=== PATIENT | male | born 1940 ===

== ENCOUNTER 2017-03-31 12:47 | Emergency (ER) | payer MEDICARE, BC ==
--- NOTE | 2017-03-31 13:33 | ED ---
General Adult HPI - General Chief complaint: Fall Stated complaint: Fall Time Seen by Provider: 03/31/17 13:10 Source: patient, RN notes reviewed Mode of arrival: wheelchair Limitations: no limitations - History of Present Illness Initial comments: 76-year-old male presents to the emergency department with a chief complaint of a fall. He states that he was getting out of his truck he went to sit stepped down and he slipped on ice. Patient states he hit his head on his car seat. He states that he then fell backwards onto his back onto the ice. Patient states he has a little bit of neck pain. He also complains of low back and bilateral hip pain as well as he is having burning-like sensation to both index fingers on the hands. He states that he hasn't had any numbness or tingling to them he is able to move them he feels pain to them with touch. He denies any other injury from the incident. He denies any loss of consciousness related to the incident. He states he takes aspirin but he denies any use of other blood thinners. There were concerned due to the fall. Patient denies any recent fever, chills, shortness of breath, chest pain, back pain, abdominal pain, nausea vomiting, numbness or tingling, dysuria or hematuria, constipation or diarrhea, headaches or visual changes, or any other current symptoms. - Related Data Home Medications Medication Instructions Recorded Confirmed ALPRAZolam [Xanax] 0.25 mg PO BID PRN 03/26/14 03/29/14 Aspirin 325 mg PO DAILY 03/26/14 03/26/14 Atorvastatin [Lipitor] 20 mg PO HS 03/26/14 03/29/14 Esomeprazole Magnesium [NexIUM] 40 mg PO DAILY 03/26/14 03/29/14 Fluticasone Propionate [Flonase] 1 spray EA NOSTRIL DAILY 03/26/14 03/29/14 HYDROcodone/APAP 7.5-325MG [[place] 1 each PO Q6HR PRN 03/26/14 03/29/14 7.5-325] Losartan Potassium [Cozaar] 100 mg PO DAILY 03/26/14 03/29/14 Nitroglycerin Sl Tabs [Nitrostat] 0.4 mg SUBLINGUAL DIRECTED PRN 03/26/1411/03 Temazepam [Restoril] 30 mg PO HS 03/26/14 03/29/14 Allergies Allergy/AdvReac Type Severity Reaction Status Date / Time Sulfa (Sulfonamide Allergy AFFECTED Verified 03/31/17 12:58 Antibiotics) KIDNEYS Review of Systems ROS Statement: Those systems with pertinent positive or pertinent negative responses have been documented in the HPI. ROS Other: All systems not noted in ROS Statement are negative. Past Medical History Past Medical History: Coronary Artery Disease (CAD), GERD/Reflux, Hypertension, Myocardial Infarction ([place]), Renal Disease Additional Past Medical History / Comment(s): KIDNEY PROB W/ PREV BOWEL PREP IN PAST. Last Myocardial Infarction Date:: 11/2009 History of Any Multi-Drug Resistant Organisms: MRSA Date of last positivie culture/infection: 10/2009 MDRO Source:: BUTTOCK Past Surgical History: Cholecystectomy, Heart Catheterization, Heart Catheterization With Stent, Orthopedic Surgery Additional Past Surgical History / Comment(s): RT 5TH DIGIT REPAIR. Past Anesthesia/Blood Transfusion Reactions: No Reported Reaction Date of Last Stent Placement:: 07/2005 Past Psychological History: No Psychological Hx Reported Smoking Status: Former smoker Past Alcohol Use History: None Reported Past Drug Use History: None Reported General Exam - General Exam Comments Initial Comments: General: The patient is awake and alert, in no distress, and does not appear acutely ill. Eye: Pupils are equal, round and reactive to light, extra-ocular movements are intact; there is normal conjunctiva bilaterally. No signs of icterus. Ears, nose, mouth and throat: There are moist mucous membranes. Neck: The neck is supple, there is no tenderness. Cardiovascular: There is a regular rate and rhythm. No murmur, rub or gallop is appreciated. Respiratory: Lungs are clear to auscultation, respirations are non-labored, breath sounds are equal. No wheezes, stridor, rales, or rhonchi. Gastrointestinal: Soft, non-distended, non-tender abdomen without masses or organomegaly noted. There is no rebound or guarding present. No CVA tenderness. Bowel sounds are unremarkable. Back: There is no tenderness to palpation in the midline. There is no obvious deformity. No rashes noted. Musculoskeletal: Normal ROM, no tenderness, There is no pedal edema. There is no calf tenderness or swelling. Sensation intact. Pulses equal bilaterally 2+. Neurological: CN II-XII intact, There are no obvious motor or sensory deficits. Coordination appears grossly intact. Speech is normal. Skin: Skin is warm and dry and no rashes or lesions are noted. Psychiatric: Cooperative, appropriate mood & affect, normal judgment. Limitations: no limitations Course Vital Signs 03/31/17 12:56 Temperature 98.1 F Pulse Rate 65 Respiratory 20 Rate Blood Pressure 192/91 O2 Sat by Pulse 98 Oximetry Medical Decision Making - Medical Decision Making 76-year-old male presents for fall. At this time patient's images are reviewed. There does appear to be a concern for fifth metacarpal fracture he has no tenderness over their only over the first digit. He refuses this point he said that is not broken. He is now. Pain there. He'll follow-up with his family care doctor if it does start to hurt. This time we will respect his wishes. We discussed return parameters and questions the patient is comfortable with this. At this time he will be discharged home. - Radiology Data Radiology results: report reviewed, image reviewed Disposition Clinical Impression: Fall, Minor head injury without loss of consciousness, Pain in finger of both hands, Lumbar strain Disposition: HOME SELF-CARE Condition: Stable Instructions: Head Injury (ED), Low Back Strain (ED) Additional Instructions: Please use medication as discussed. Please follow up with family doctor if symptoms have not improved over the next two days. Please return to the emergency room if your symptoms increase or worsen or for any other concerns. Referrals: Amish Crawford MD [Primary Care Provider] - 1-2 days Time of Disposition: 14:20
--- NOTE | 2017-03-31 14:05 | CT ---
EXAMINATION TYPE: CT brain cspine wo con DATE OF EXAM: 03/31/2017 COMPARISON: Prior CT brain and cervical spine 03/23/2010 HISTORY: Fall today. Neck and back pain. CT DLP: 1591.8 mGycm Automated exposure control for dose reduction was used. TECHNIQUE: CT scan of the head and cervical spine are performed without contrast. FINDINGS: There is no acute intracranial hemorrhage, mass effect, or midline shift identified. The ventricles and sulci are within normal limits in size. Cerebral vascular calcifications again noted. The globes are intact and the visualized sinuses are clear. Cervical spine is visualized in its entirety from C1 through upper thoracic levels and demonstrates s atisfactory alignment without evidence of acute fracture or dislocation. Prevertebral soft tissue ap pears within normal limits. The C1-C2 articulation is stable. Atheromatous changes are present withi n the carotid arteries. There is multilevel foraminal encroachment, facet arthropathy as on prior exa m. There is multilevel spondylosis, loss of disc height is on prior. Arthropathy changes present. IMPRESSION: Stable exam. 1. There is no acute fracture or dislocation evident in the cervical spine. 2. No acute intracranial hemorrhage, mass effect, or midline shift is seen.
--- NOTE | 2017-03-31 14:06 | XR ---
EXAMINATION TYPE: XR hand complete RT DATE OF EXAM: 03/31/2017 CLINICAL HISTORY: pain TECHNIQUE: Frontal, lateral and oblique images of the right hand are obtained. COMPARISON: None. FINDINGS: Nondisplaced obliquely oriented fracture of the right fifth metacarpal. The joint spaces ap pear within normal limits. The overlying soft tissue appears unremarkable. IMPRESSION: Nondisplaced obliquely oriented fracture of the right fifth metacarpal. ICD 10 closed FRACTURE, INITIAL EVALUATION
--- NOTE | 2017-03-31 14:07 | XR ---
EXAMINATION TYPE: XR pelvis AP view DATE OF EXAM: 03/31/2017 CLINICAL HISTORY: pain TECHNIQUE: Single view the pelvis is submitted. FINDINGS: No evidence for fracture, dislocation or bony lesion. Joint spaces are well-preserved. S I joints appear symmetric. IMPRESSION: 1. No acute fracture or dislocation seen. ICD 10 NO FRACTURE, INITIAL EVALUATION
--- NOTE | 2017-03-31 14:07 | CT ---
EXAMINATION TYPE: CT thor lumbar spine wo con DATE OF EXAM: 03/31/2017 COMPARISON: NONE HISTORY: Fall today. Back pain. CT DLP: 1071.6 mGycm Automated exposure control for dose reduction was used. FINDINGS: CT scan of the thoracolumbar spine show slight scoliotic curvature on coronal images in the thoracic spine and straightening of spine on sagittal images. There is no acute fracture or dislocation in the thoracic spine. There is some mild to moderate multilevel disc space narrowing in the mid thoracic spine. There is mi ld to moderate multilevel anterior and lateral spurring in the mid to lower thoracic spine. There is more mild anterior and lateral spurring in the lumbar spine. There is posterior spur disc complex eff acing anterior thecal sac at T6-T7 level sagittal image 38. Some posterior spurring from T7-T8 disc s pace level and posterior T9 vertebra is noted on sagittal images. No large posterior disc herniations are seen in the lumbar spine on sagittal or axial images. There is moderate to severe calcified plaque of the aorta most prominent in the distal abdominal aort a extending into iliac branch vessels. There is partial visualization of sigmoid colonic diverticulos is. There is partial visualization of coronary artery calcification. IMPRESSION: NO ACUTE FRACTURE OR DISLOCATION IN THE THORACOLUMBAR SPINE IS PRESENT.
[2017-03-31 14:30] VITALS: BP 167/87; PULSE 62; RESP 17; TEMP 97.8
== END 2017-03-31 14:29 | disposition home or self-care (01) ==
LOC: EC 12:47
DX: S09.90XA Unspecified injury of head, initial encounter (principal); S39.012A Strain of muscle, fascia and tendon of lower back, initial encounter; M79.645 Pain in left finger(s); M79.644 Pain in right finger(s); M54.2 Cervicalgia; M25.551 Pain in right hip; M25.552 Pain in left hip; K21.9 Gastro-esophageal reflux disease without esophagitis; I10 Essential (primary) hypertension; I25.2 Old myocardial infarction; Z86.14 Personal history of Methicillin resistant Staphylococcus aureus infection; Z95.5 Presence of coronary angioplasty implant and graft; Z79.51 Long term (current) use of inhaled steroids; Z79.82 Long term (current) use of aspirin; Z79.899 Other long term (current) drug therapy; Z88.2 Allergy status to sulfonamides; Z87.891 Personal history of nicotine dependence; W00.2XXA Other fall from one level to another due to ice and snow, initial encounter
CPT/HCPCS: 70450; 72125; 72128; 72131; 72170; 99284

== ENCOUNTER → 2017-10-26 | Outpatient (CLI) | payer MEDICARE, BC ==
--- NOTE | 2017-10-26 22:57 | US ---
EXAMINATION TYPE: US kidneys/renal and bladder DATE OF EXAM: 10/26/2017 COMPARISON: NONE CLINICAL HISTORY: 77-year-old male R94.4 Abnormal results of kidney function studies. Abn Labs TECHNIQUE: Multiple sonographic images of the kidneys and bladder are obtained. FINDINGS: Right Kidney: 9.7 x 5.0 x 4.6 cm Left Kidney: 10.0 x 5.7 x 4.2 cm No hydronephrosis on either side. Partially distended bladder shows no gross abnormality. Neither ureteral jet is visualized IMPRESSION: No hydronephrosis.
== END | disposition home or self-care (01) ==
LOC: RADUSWWP 16:24
PROVIDERS: ATTEND Internal Medicine Geriatric Medicine
DX: R94.4 Abnormal results of kidney function studies (principal)
CPT/HCPCS: 76770

== ENCOUNTER 2021-10-17 20:10 | Emergency (ER) | payer MEDICARE, BC ==
--- NOTE | 2021-10-17 20:35 | ED ---
General Adult HPI - General Chief complaint: Fever Stated complaint: Fever Time Seen by Provider: 10/17/21 20:35 Source: patient, family Mode of arrival: ambulatory Limitations: no limitations - History of Present Illness Initial comments: Patient presents to the ED with his for evaluation. Patient states that he has felt "just blah" today. Patient states that he had a fever of 101 Fahrenheit earlier today, and he is complaining of malaise. Patient is unvaccinated for Covid, but he states that he has received a flu vaccine this season. Patient denies having any pain, headache, neck pain or stiffness, sore throat, otalgia, nasal congestion, cough, chest pain, dyspnea, dizziness, abdominal pain, nausea/vomiting/diarrhea, bloody or melanotic stool, dysuria or urinary symptoms, or any other symptoms or complaints. Patient denies taking an y antipyretic medication today. - Related Data Home Medications Medication Instructions Recorded Confirmed ALPRAZolam [Xanax] 0.25 mg PO BID PRN 03/26/14 03/29/14 Aspirin 325 mg PO DAILY 03/26/14 03/26/14 Atorvastatin [Lipitor] 20 mg PO HS 03/26/14 03/29/14 Esomeprazole Magnesium [NexIUM] 40 mg PO DAILY 03/26/14 03/29/14 Fluticasone Propionate [Flonase] 1 spray EA NOSTRIL DAILY 03/26/14 03/29/14 HYDROcodone/APAP 7.5-325MG [[place] 1 each PO Q6HR PRN 03/26/14 03/29/14 7.5-325] Losartan Potassium [Cozaar] 100 mg PO DAILY 03/26/14 03/29/14 Nitroglycerin Sl Tabs [Nitrostat] 0.4 mg SUBLINGUAL DIRECTED PRN 03/26/14 03/29/14 Temazepam [Restoril] 30 mg PO HS 03/26/14 03/29/14 Allergies Allergy/AdvReac Type Severity Reaction Status Date / Time Sulfa (Sulfonamide Allergy AFFECTED Verified 10/17/21 20:16 Antibiotics) KIDNEYS Review of Systems ROS Statement: Those systems with pertinent positive or pertinent negative responses have been documented in the HPI. ROS Other: All systems not noted in ROS Statement are negative. Past Medical History Past Medical History: Coronary Artery Disease (CAD), GERD/Reflux, Hypertension, Myocardial Infarction ([place]), Renal Disease Additional Past Medical History / Comment(s): KIDNEY PROB W/ PREV BOWEL PREP IN PAST. Last Myocardial Infarction Date:: 11/2009 History of Any Multi-Drug Resistant Organisms: MRSA Date of last positivie culture/infection: 10/2009 MDRO Source:: BUTTOCK Past Surgical History: Cholecystectomy, Heart Catheterization, Heart Catheterization With Stent, Orthopedic Surgery Additional Past Surgical History / Comment(s): RT 5TH DIGIT REPAIR. Past Anesthesia/Blood Transfusion Reactions: No Reported Reaction Date of Last Stent Placement:: 07/2005 Past Psychological History: No Psychological Hx Reported Smoking Status: Former smoker Past Alcohol Use History: None Reported Past Drug Use History: None Reported General Exam Limitations: no limitations General appearance: alert, in no apparent distress Head exam: Present: atraumatic, normocephalic Eye exam: Present: normal appearance, EOMI ENT exam: Present: normal oropharynx, mucous membranes moist Neck exam: Present: other (Trachea is in midline). Absent: tenderness, meningismus Respiratory exam: Present: normal lung sounds bilaterally. Absent: respiratory distress, wheezes, rales, rhonchi, stridor Cardiovascular Exam: Present: regular rate, normal rhythm, normal heart sounds, other (Normal radial pulses bilaterally) GI/Abdominal exam: Present: soft. Absent: distended, tenderness, guarding Extremities exam: Absent: tenderness, pedal edema Back exam: Absent: CVA tenderness (R), CVA tenderness (L) Neurological exam: Present: alert, oriented X3. Absent: motor sensory deficit Psychiatric exam: Present: normal affect, normal mood Skin exam: Present: warm, dry, intact, normal color Course Vital Signs 10/17/21 10/17/21 20:11 22:38 Temperature 100 F H 98.2 F Pulse Rate 62 64 Respiratory 22 16 Rate Blood Pressure 184/103 159/90 O2 Sat by Pulse 95 95 Oximetry - Reevaluation(s) Reevaluation #1: 10/17/21 22:18 Patient's Covid test is positive. I have discussed the risks and benefits of monoclonal antibody therapy with the patient, and he wishes to proceed with IV monoclonal antibodies at this time. Medical Decision Making - Medical Decision Making Patient is breathing comfortably in the ED with a normal room air oxygen saturation. Patient's Covid test is positive. Patient's chest x-ray is unremarkable. Patient has received IV monoclonal antibodies for treatment of Covid in the ED. Patient and were counseled about Covid and Covid isolation precautions, and they were clearly explained return and follow-up instructions. Patient feels comfortable with this plan. - Lab Data Result diagrams: 10/17/21 21:06 10/17/21 21:06 Lab Results 10/17/21 10/17/21 10/17/21 Range/Units 21:06 21:06 21:06 WBC 6.5 (3.8-10.6) k/uL RBC 4.98 (4.30-5.90) m/uL Hgb 14.7 (13.0-17.5) gm/dL Hct 45.8 (39.0-53.0) % MCV 92.0 (80.0-100.0) fL MCH 29.6 (25.0-35.0) pg MCHC 32.2 (31.0-37.0) g/dL RDW 12.7 (11.5-15.5) % Plt Count 208 (150-450) k/uL MPV 7.8 Neutrophils % 79 % Lymphocytes % 4 % Monocytes % 15 % Eosinophils % 1 % Basophils % 1 % Neutrophils # 5.1 (1.3-7.7) k/uL Lymphocytes # 0.3 L (1.0-4.8) k/uL Monocytes # 0.9 (0-1.0) k/uL Eosinophils # 0.0 (0-0.7) k/uL Basophils # 0.1 (0-0.2) k/uL Sodium (137-145) mmol/L Potassium (3.5-5.1) mmol/L Chloride (98-107) mmol/L Carbon Dioxide (22-30) mmol/L Anion Gap mmol/L BUN (9-20) mg/dL Creatinine (0.66-1.25) mg/dL Est GFR (CKD-EPI)AfAm (>60 ml/min/1.73 sqM) Est GFR (CKD-EPI)NonAf (>60 ml/min/1.73 sqM) Glucose (74-99) mg/dL Calcium (8.4-10.2) mg/dL Total Bilirubin (0.2-1.3) mg/dL AST (17-59) U/L ALT (4-49) U/L Alkaline Phosphatase (38-126) U/L Total Protein (6.3-8.2) g/dL Albumin (3.5-5.0) g/dL Urine Color Yellow Urine Appearance Cloudy (Clear) Urine pH 7.5 (5.0-8.0) Ur Specific [place] 1.020 (1.001-1.035) Urine Protein Trace H (Negative) Urine Glucose (UA) Negative (Negative) Urine Ketones Trace H (Negative) Urine Blood Moderate H (Negative) Urine Nitrite Negative (Negative) Urine Bilirubin Negative (Negative) Urine Urobilinogen <2.0 (<2.0) mg/dL Ur Leukocyte Esterase Negative (Negative) Urine RBC 35 H (0-5) /hpf Urine WBC <1 (0-5) /hpf Ur Squamous Epith Cells <1 (0-4) /hpf Urine Mucus Rare H (None) /hpf Influenza Type A (PCR) Not Detected (Not Detectd) Influenza Type B (PCR) Not Detected (Not Detectd) RSV (PCR) Not Detected (Not Detectd) SARS-CoV-2 (PCR) Detected A (Not Detectd) 10/17/21 Range/Units 21:06 WBC (3.8-10.6) k/uL RBC (4.30-5.90) m/uL Hgb (13.0-17.5) gm/dL Hct (39.0-53.0) % MCV (80.0-100.0) fL MCH (25.0-35.0) pg MCHC (31.0-37.0) g/dL RDW (11.5-15.5) % Plt Count (150-450) k/uL MPV Neutrophils % % Lymphocytes % % Monocytes % % Eosinophils % % Basophils % % Neutrophils # (1.3-7.7) k/uL Lymphocytes # (1.0-4.8) k/uL Monocytes # (0-1.0) k/uL Eosinophils # (0-0.7) k/uL Basophils # (0-0.2) k/uL Sodium 140 (137-145) mmol/L Potassium 4.1 (3.5-5.1) mmol/L Chloride 102 (98-107) mmol/L Carbon Dioxide 28 (22-30) mmol/L Anion Gap 10 mmol/L BUN 16 (9-20) mg/dL Creatinine 1.13 (0.66-1.25) mg/dL Est GFR (CKD-EPI)AfAm 70 (>60 ml/min/1.73 sqM) Est GFR (CKD-EPI)NonAf 61 (>60 ml/min/1.73 sqM) Glucose 114 H (74-99) mg/dL Calcium 9.9 (8.4-10.2) mg/dL Total Bilirubin 0.4 (0.2-1.3) mg/dL AST 34 (17-59) U/L ALT 20 (4-49) U/L Alkaline Phosphatase 99 (38-126) U/L Total Protein 8.1 (6.3-8.2) g/dL Albumin 4.6 (3.5-5.0) g/dL Urine Color Urine Appearance (Clear) Urine pH (5.0-8.0) Ur Specific [place] (1.001-1.035) Urine Protein (Negative) Urine Glucose (UA) (Negative) Urine Ketones (Negative) Urine Blood (Negative) Urine Nitrite (Negative) Urine Bilirubin (Negative) Urine Urobilinogen (<2.0) mg/dL Ur Leukocyte Esterase (Negative) Urine RBC (0-5) /hpf Urine WBC (0-5) /hpf Ur Squamous Epith Cells (0-4) /hpf Urine Mucus (None) /hpf Influenza Type A (PCR) (Not Detectd) Influenza Type B (PCR) (Not Detectd) RSV (PCR) (Not Detectd) SARS-CoV-2 (PCR) (Not Detectd) - Radiology Data Chest x-ray: No acute cardiopulmonary disease/process. Disposition Clinical Impression: COVID-19 Disposition: HOME SELF-CARE Condition: Stable Instructions (If sedation given, give patient instructions): Coronavirus Disease 2019 (COVID-19), Fever in Adults (ED) Additional Instructions: Return to the ER immediately should you develop shortness of breath, any significant pain, feeling dizzy or faint, or new or worsening symptoms. Follow up closely with your primary care provider. Is patient prescribed a controlled substance at d/c from ED?: No Referrals: Amish Crawford MD [Primary Care Provider] - 1-2 days Time of Disposition: 23:05
[2021-10-17] MEDS ORDERED: ACETAMINOPHEN TAB 500 MG TAB PO STA (20:48)
[2021-10-17 21:25] LABS: Appearance,Urine Cloudy (Clear); Bilirubin,Urine Negative (Negative); Blood,Urine Moderate (Negative); Color,Urine Yellow; Glucose,Urine (UA) Negative (Negative); Ketones,Urine Trace (Negative); Leukocyte Esterase,Urine Negative (Negative); Mucus,Urine Rare /hpf; Nitrite,Urine Negative (Negative); PH, Urine 7.5 (5.0-8.0); Protein,Urine Trace (Negative); RBC,Urine 35 /hpf (0-5); Squamous Epithelial Cell,Urine <1 /hpf (0-4); Urobilinogen,Urine <2.0 mg/dL (<2.0); WBC,Urine <1 /hpf (0-5)
--- NOTE | 2021-10-17 21:25 | XR ---
EXAMINATION TYPE: XR chest 2V DATE OF EXAM: 10/17/2021 9:19 PM COMPARISON: Chest radiographs from 12/18/2018 TECHNIQUE: XR chest 2V Frontal and lateral views of the chest. CLINICAL INDICATION:Male, 81 years old with history of fever; FINDINGS: Lungs/Pleura: There is no evidence of pleural effusion, focal consolidation, or pneumothorax. Pulmonary vascularity: Unremarkable. Heart/mediastinum: Cardiomediastinal silhouette is unremarkable. Musculoskeletal: No acute osseous pathology. IMPRESSION: No acute cardiopulmonary disease/process.
[2021-10-17 21:31] LABS: Albumin 4.6 g/dL (3.5-5.0); Calcium 9.9 mg/dL (8.4-10.2); Potassium 4.1 mmol/L (3.5-5.1); Total Bilirubin 0.4 mg/dL (0.2-1.3); Total Protein 8.1 g/dL (6.3-8.2)
[2021-10-17 21:42] LABS: Basophils # (A) 0.1 k/uL (0-0.2); Basophils % (A) 1 %; Eosinophils % (A) 1 %; HCT 45.8 % (39.0-53.0); HGB 14.7 gm/dL (13.0-17.5); Lymphocytes # (A) 0.3 k/uL (1.0-4.8); Lymphocytes % (A) 4 %; MCH 29.6 pg (25.0-35.0); MCHC 32.2 g/dL (31.0-37.0); Mean Platelet Volume 7.8; Monocytes # (A) 0.9 k/uL (0-1.0); Monocytes % (A) 15 %; Neutrophils # (A) 5.1 k/uL (1.3-7.7); Neutrophils % (A) 79 %; Platelet Count 208 k/uL (150-450); RBC 4.98 m/uL (4.30-5.90); RDW 12.7 % (11.5-15.5); WBC 6.5 k/uL (3.8-10.6)
[2021-10-17] MEDS ORDERED: BEBTELOVIMAB (EUA) 175 MG/2 ML VIAL IV ONE (22:30)
[2021-10-17 22:40] VITALS: RESP 16
[2021-10-17 23:42] VITALS: BP 159/96; PULSE 60; TEMP 98.9
== END 2021-10-17 23:48 | disposition home or self-care (01) ==
LOC: EC 20:10
DX: U07.1 COVID-19 (principal); I10 Essential (primary) hypertension; I25.2 Old myocardial infarction; K21.9 Gastro-esophageal reflux disease without esophagitis; I25.10 Atherosclerotic heart disease of native coronary artery without angina pectoris; Z88.2 Allergy status to sulfonamides; Z79.899 Other long term (current) drug therapy; Z79.82 Long term (current) use of aspirin; Z87.891 Personal history of nicotine dependence
CPT/HCPCS: 36415; 80053; 85025; 81001; 87636; 71046; 99283; Q0222

== ENCOUNTER 2022-12-22 13:34 | Observation (INO) | payer MEDICARE, BC ==
[2022-12-22] MEDS ORDERED: DIPH,PERTUS(ACELL)TETVAC-LF 0.5 ML VIAL IM ONE (13:56)
[2022-12-22] MEDS ORDERED: LIDOCAINE/EPINEPHR/TETRACAINE 5 ML BOTTLE TOPICAL ONE (13:56)
[2022-12-22] MEDS ORDERED: ceFAZolin 1,000 MG VIAL (IM USE) IM STA (13:58)
[2022-12-22] MEDS ORDERED: MORPHINE SULFATE 4 MG/ML SYRINGE IM STA (14:07)
--- NOTE | 2022-12-22 14:14 | ED ---
Upper Extremity HPI - General Chief Complaint: Extremity Injury, Upper Stated Complaint: Smashed L Thumb, No Thinners Time Seen by Provider: 12/22/22 13:43 Source: patient, RN notes reviewed Mode of arrival: ambulatory Limitations: no limitations - History of Present Illness Initial Comments: This is an 82-year-old male who presents to the emergency department for a left thumb injury. States that he got this caught in a wood splitter shortly before arrival. He is unable to control the bleeding. He is not taking any blood thinners. Unsure when his last tetanus vaccine was. States that this is becoming increasingly painful. Denies any fevers, chills, sore throat, cough, dyspnea, chest pain, palpitations, abdominal pain, nausea, vomiting, diarrhea, back pain, or headaches. MD Complaint: Injury to:: left, finger - Related Data Home Medications Medication Instructions Recorded Confirmed ALPRAZolam [Xanax] 0.25 mg PO BID PRN 03/26/14 12/22/22 Temazepam [Restoril] 30 mg PO HS 03/26/14 12/22/22 HYDROcodone/APAP 10-325MG [[place] 1 tab PO Q6HR PRN 12/22/22 12/22/22 10-325] traMADol HCL 50 mg PO Q6H PRN 12/22/22 12/22/22 Allergies Allergy/AdvReac Type Severity Reaction Status Date / Time Sulfa (Sulfonamide Allergy AFFECTED Verified 12/22/22 13:41 Antibiotics) KIDNEYS Review of Systems ROS Statement: Those systems with pertinent positive or pertinent negative responses have been documented in the HPI. ROS Other: All systems not noted in ROS Statement are negative. Past Medical History Past Medical History: Coronary Artery Disease (CAD), GERD/Reflux, Hypertension, Myocardial Infarction ([place]), Renal Disease Additional Past Medical History / Comment(s): KIDNEY PROB W/ PREV BOWEL PREP IN PAST. Last Myocardial Infarction Date:: 11/2009 History of Any Multi-Drug Resistant Organisms: MRSA Date of last positivie culture/infection: 10/2009 MDRO Source:: BUTTOCK Past Surgical History: Cholecystectomy, Heart Catheterization, Heart Catheterization With Stent, Orthopedic Surgery Additional Past Surgical History / Comment(s): RT 5TH DIGIT REPAIR. Past Anesthesia/Blood Transfusion Reactions: No Reported Reaction Date of Last Stent Placement:: 07/2005 Past Psychological History: No Psychological Hx Reported Smoking Status: Former smoker Past Alcohol Use History: None Reported Past Drug Use History: None Reported General Exam Limitations: no limitations General appearance: alert, in no apparent distress Head exam: Present: atraumatic, normocephalic, normal inspection Respiratory exam: Present: normal lung sounds bilaterally. Absent: respiratory distress, wheezes, rales, rhonchi, stridor Cardiovascular Exam: Present: regular rate, normal rhythm, normal heart sounds. Absent: systolic murmur, diastolic murmur, rubs, gallop, clicks Extremities exam: Present: other (Severe tissue loss and damage to the distal aspect of the left thumb with visible distal phalanx bone. Active bleeding.) Neurological exam: Present: alert, oriented X3, CN II-XII intact Psychiatric exam: Present: normal affect, normal mood Course Vital Signs 12/22/22 13:36 Temperature 97.9 F Pulse Rate 89 Respiratory 18 Rate Blood Pressure 179/98 O2 Sat by Pulse 98 Oximetry Medical Decision Making - Medical Decision Making This is an 82-year-old male who presents to the emergency department for a left thumb injury. Was pt. sent in by a medical professional or institution? @ -No Did you speak to anyone other than the patient for history? @ -No Did you review nursing and triage notes? @ -Yes, and I agree, it is accurate with regards to the patient's symptoms. Were old charts reviewed? @ -No Differential Diagnosis? @ -Differential Thumb Injury: Fracture, dislocation, contusion, laceration, abrasion, degloving injury, this is not meant to be an all-inclusive list. EKG interpreted by me (3pts min.)? @ -Not obtained X-rays interpreted by me (1pt min.)? @ -X-ray of the left thumb obtained. My interpretation of that of a severe tissue destruction to the distal aspect of the left thumb. CT interpreted by me (1pt min.)? @ -Not obtained U/S interpreted by me (1pt. min.)? @ -Not obtained What testing was considered but not performed? (CT, X-rays, U/S, labs)? Why? @ -None What meds were considered but not given? Why? @ -None Did you discuss the management of the patient with other professionals? @ -Yes, Rajiv Galindo with [facility], who accepts the patient for admission. Did you reconcile home meds? @ -No Was smoking cessation discussed for >3mins.? @ -No Was critical care preformed (if so, how long)? @ -No Were there social determinants of health that impacted care today? How? (Homelessness, low income, unemployed, alcoholism, drug addiction, transportation, low edu. Level, literacy, decrease access to med. care, assisted, rehab)? @ -No Was there de-escalation of care discussed even if they declined? (Discuss DNR or withdrawal of care, Hospice)? @ -No What co-morbidities impacted this encounter? (DM, HTN, Smoking, COPD, CAD, Cancer, CVA, Hep., AIDS, mental health diagnosis, sleep apnea, morbid obesity)? @ HLD, HTN, CAD Was patient admitted / discharged? @ -Admitted. X-ray of the left thumb obtained revealing severe soft tissue loss to the distal aspect of the left thumb with the underlying transverse fracture through the shaft of the first distal phalanx. Tetanus vaccine was updated on arrival and he was immediately given a dose of IM Kefzol due to the obvious open fracture. There was substantial bleeding on arrival. We were able to control this is some extent with LET. The wound itself was thoroughly irrigated. However, there was a large amount of exposed bone and the distal aspect was essentially mangled and there were no skin flaps that could be used for closure in the emergency department. Given the exposed bone and inability to provide closure, there was concern for the development of infection. This is also the patient's dominant hand. Case discussed with orthopedics, who agrees to admit the patient. They advised IV antibiotics, updating his tetanus, and keeping him NPO after midnight for surgical intervention. Patient was started on IV Kefzol and medicine was consulted for medical management. NPO after midnight orders were placed. Preoperative lab work was obtained as well revealing no actionable findings. Undiagnosed new problem with uncertain prognosis? @ -None Drug Therapy requiring intensive monitoring for toxicity (Heparin, Nitro, Insulin, Cardizem)? @ -None Were any procedures done? @ -None Diagnosis/symptom? @ -Crushing injury of left thumb Acute, or Chronic, or Acute on Chronic? @ -Acute Uncomplicated (without systemic symptoms) or Complicated (systemic symptoms)? @ -Uncomplicated Side effects of treatment? @ -None Exacerbation, Progression, or Severe Exacerbation] @ -Not applicable Poses a threat to life or bodily function? @ -Yes This case was discussed in detail with the attending ED physician, Dr. Rouse. Presentation, findings, and treatment plan discussed in detail as well. - Lab Data Result diagrams: 12/22/22 15:30 12/22/22 15:30 Lab Results 12/22/22 12/22/22 12/22/22 Range/Units 15:30 15:30 15:30 WBC 9.0 (3.8-10.6) k/uL RBC 5.04 (4.30-5.90) m/uL Hgb 15.3 (13.0-17.5) gm/dL Hct 47.5 (39.0-53.0) % MCV 94.3 (80.0-100.0) fL MCH 30.4 (25.0-35.0) pg MCHC 32.3 (31.0-37.0) g/dL RDW 13.0 (11.5-15.5) % Plt Count 202 (150-450) k/uL MPV 9.6 Neutrophils % 85 % Lymphocytes % 7 % Monocytes % 6 % Eosinophils % 1 % Basophils % 0 % Neutrophils # 7.6 (1.3-7.7) k/uL Lymphocytes # 0.6 L (1.0-4.8) k/uL Monocytes # 0.5 (0-1.0) k/uL Eosinophils # 0.1 (0-0.7) k/uL Basophils # 0.0 (0-0.2) k/uL PT 11.0 (9.0-12.0) sec INR 1.0 (<1.2) APTT 24.2 (22.0-30.0) sec Sodium 141 (137-145) mmol/L Potassium 3.8 (3.5-5.1) mmol/L Chloride 102 (98-107) mmol/L Carbon Dioxide 28 (22-30) mmol/L Anion Gap 11 mmol/L BUN 14 (9-20) mg/dL Creatinine 1.03 (0.66-1.25) mg/dL Est GFR (CKD-EPI)AfAm 78 (>60 ml/min/1.73 sqM) Est GFR (CKD-EPI)NonAf 68 (>60 ml/min/1.73 sqM) Glucose 98 (74-99) mg/dL Calcium 9.7 (8.4-10.2) mg/dL Total Bilirubin 0.9 (0.2-1.3) mg/dL AST 39 (17-59) U/L ALT 33 (4-49) U/L Alkaline Phosphatase 101 (38-126) U/L Total Protein 7.5 (6.3-8.2) g/dL Albumin 4.2 (3.5-5.0) g/dL - Radiology Data Radiology results: report reviewed, image reviewed Disposition Clinical Impression: Crushing injury of left thumb Disposition: ADMITTED IP TO THIS HOSP
--- NOTE | 2022-12-22 14:54 | XR ---
EXAMINATION TYPE: XR finger LT (3 views thumb) DATE OF EXAM: 12/22/2022 Comparison: None Clinical History: 82-year-old male with pain after Left thumb injury. 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 Findings: Prominent soft tissue loss distal aspect of the thumb. There is transverse fracture through the shaft of the first distal phalanx. 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 No retained radiopaque foreign body seen. Impression: 1. Severe soft tissue loss distal aspect of the thumb. 2. Underlying transverse fracture through the shaft of the first distal phalanx. 3. Underlying severe osteoarthritic change first CMC and first IP joints.
[2022-12-22] MEDS ORDERED: MORPHINE SULFATE 4 MG/ML SYRINGE IV PRN (15:40)
[2022-12-22] MEDS ORDERED: NALOXONE 0.4 MG/ML 1 ML VIAL IV PRN (15:40)
[2022-12-22] MEDS ORDERED: ACETAMINOPHEN TAB 325 MG TAB PO PRN (15:40)
[2022-12-22] MEDS ORDERED: ONDANSETRON 4 MG/2 ML VIAL IVP PRN (15:40)
[2022-12-22] MEDS ORDERED: MORPHINE SULFATE 2 MG/ML SYRINGE IVP PRN (15:42)
[2022-12-22] MEDS ORDERED: HYDROcodone/APAP 7.5-325MG 1 EACH TAB PO PRN (15:48)
[2022-12-22] MEDS ORDERED: NITROGLYCERIN SL TABS 0.4 MG TAB SUBLINGUAL PRN (15:49)
--- NOTE | 2022-12-22 15:57 | P.CONS ---
History of Present Illness - Reason for Consult Preoperative clearance - History of Present Illness 82-year-old male is admitted for transverse fracture of the left thumb after it got struck in the wood splinter. Patient does have history of hypertension denied any present chest pain denied any history of smoking. Patient doesn't denied any shortness of breath orthopnea or paroxysmal nocturnal dyspnea patient blood pressure is bit on the higher side. He does take her losartan at home. REVIEW OF SYSTEMS: CONSTITUTIONAL: No fever, no malaise, no fatigue. HEENT: No recent visual problems or hearing problems. Denied any sore throat. CARDIOVASCULAR: No chest pain, orthopnea, PND, no palpitations, no syncope. PULMONARY: No shortness of breath, no cough, no hemoptysis. GASTROINTESTINAL: No diarrhea, no nausea, no vomiting, no abdominal pain. NEUROLOGICAL: No headaches, no weakness, no numbness. HEMATOLOGICAL: Denies any bleeding or petechiae. GENITOURINARY: Denies any burning micturition, frequency, or urgency. MUSCULOSKELETAL/RHEUMATOLOGICAL: Severed distal left thumb ENDOCRINE: Denies any polyuria or polydipsia. The rest of the 14-point review of systems is negative. PHYSICAL EXAMINATION: GENERAL: The patient is alert and oriented x3, not in any acute distress. Well developed, well nourished. HEENT: Pupils are round and equally reacting to light. EOMI. No scleral icterus. No conjunctival pallor. Normocephalic, atraumatic. No pharyngeal erythema. No thyromegaly. CARDIOVASCULAR: S1 and S2 present. No murmurs, rubs, or gallops. PULMONARY: Chest is clear to auscultation, no wheezing or crackles. ABDOMEN: Soft, nontender, nondistended, normoactive bowel sounds. No palpable organomegaly. MUSCULOSKELETAL: As mentioned above EXTREMITIES: No cyanosis, clubbing, or pedal edema. NEUROLOGICAL: Gross neurological examination did not reveal any focal deficits. SKIN: No rashes. Assessment and plan -Transverse fracture of the distal thumb: Management as per primary service regarding preoperative clearance place increased operative risk for arthritic surgery. We'll obtain an EKG .-Hypertension patient has elevated uncontrolled blood pressure this is secondary to pain patient is on morphine and will add Trade, can use either tramadol or Toradol for pain. Patient will be resumed on losartan and monitor extent-hyperlipidemia -Coronary artery disease with stents in the past resumed on home medications -Gastroesophageal reflux disease: Resumed on proton pump inhibitor DVT prophylaxis: As per primary service Past Medical History Past Medical History: Coronary Artery Disease (CAD), GERD/Reflux, Hypertension, Myocardial Infarction ([place]), Renal Disease Additional Past Medical History / Comment(s): KIDNEY PROB W/ PREV BOWEL PREP IN PAST. Last Myocardial Infarction Date:: 11/2009 History of Any Multi-Drug Resistant Organisms: MRSA Year Discovered:: 10/2009 MDRO Source:: BUTTOCK Past Surgical History: Cholecystectomy, Heart Catheterization, Heart Catheterization With Stent, Orthopedic Surgery Additional Past Surgical History / Comment(s): RT 5TH DIGIT REPAIR. Past Anesthesia/Blood Transfusion Reactions: No Reported Reaction Date of Last Stent Placement:: 07/2005 Past Psychological History: No Psychological Hx Reported Smoking Status: Former smoker Past Alcohol Use History: None Reported Past Drug Use History: None Reported Medications and Allergies Home Medications Medication Instructions Recorded Confirmed Type ALPRAZolam [Xanax] 0.25 mg PO BID PRN 03/26/14 03/29/14 History Aspirin 325 mg PO DAILY 03/26/14 03/26/14 History Atorvastatin [Lipitor] 20 mg PO HS 03/26/14 03/29/14 History Esomeprazole Magnesium [NexIUM] 40 mg PO DAILY 03/26/14 03/29/14 History Fluticasone Propionate [Flonase] 1 spray EA NOSTRIL DAILY 03/26/14 03/29/14 History HYDROcodone/APAP 7.5-325MG [[place] 1 each PO Q6HR PRN 03/26/14 03/29/14 History 7.5-325] Losartan Potassium [Cozaar] 100 mg PO DAILY 03/26/14 03/29/14 History Nitroglycerin Sl Tabs [Nitrostat] 0.4 mg SUBLINGUAL DIRECTED PRN 03/26/14 03/29/14 History Temazepam [Restoril] 30 mg PO HS 03/26/14 03/29/14 History Allergies Allergy/AdvReac Type Severity Reaction Status Date / Time Sulfa (Sulfonamide Allergy AFFECTED Verified 12/22/22 13:41 Antibiotics) KIDNEYS Physical Exam Vitals: Vital Signs Temp Pulse Resp BP Pulse Ox 12/22/22 13:36 97.9 F 89 18 179/98 98 Intake and Output 1012/22/22 12/22/22 06:59 14:59 22:59 Other: Weight 83.915 kg
[2022-12-22 16:26] LABS: ALT 33 U/L (4-49); AST 39 U/L (17-59); African American GFR (CKD) 78 (>60 ml/min/1.73 sqM); Albumin 4.2 g/dL (3.5-5.0); Alkaline Phosphatase 101 U/L (38-126); Anion Gap 11 mmol/L; Blood Urea Nitrogen 14 mg/dL (9-20); Calcium 9.7 mg/dL (8.4-10.2); Carbon Dioxide 28 mmol/L (22-30); Chloride 102 mmol/L (98-107); Glucose 98 mg/dL (74-99); Non-African American GFR(CKD) 68 (>60 ml/min/1.73 sqM); Potassium 3.8 mmol/L (3.5-5.1); Sodium 141 mmol/L (137-145); Total Bilirubin 0.9 mg/dL (0.2-1.3); Total Protein 7.5 g/dL (6.3-8.2)
[2022-12-22 16:35] LABS: Partial Thromboplastin Time 24.2 sec (22.0-30.0)
[2022-12-22 16:50] LABS: Basophils % (A) 0 %; Eosinophils # (A) 0.1 k/uL (0-0.7); Eosinophils % (A) 1 %; HCT 47.5 % (39.0-53.0); HGB 15.3 gm/dL (13.0-17.5); Lymphocytes # (A) 0.6 k/uL (1.0-4.8); Lymphocytes % (A) 7 %; MCH 30.4 pg (25.0-35.0); MCHC 32.3 g/dL (31.0-37.0); MCV 94.3 fL (80.0-100.0); Mean Platelet Volume 9.6; Monocytes # (A) 0.5 k/uL (0-1.0); Monocytes % (A) 6 %; Neutrophils # (A) 7.6 k/uL (1.3-7.7); Neutrophils % (A) 85 %; Platelet Count 202 k/uL (150-450); RBC 5.04 m/uL (4.30-5.90)
[2022-12-22 20:17] VITALS: RESP 16
[2022-12-22] MEDS ORDERED: ATORVASTATIN 20 MG TAB PO SCH (21:00)
[2022-12-23] MEDS ORDERED: TEMAZEPAM 30 MG CAP PO SCH (00:45)
[2022-12-23] MEDS ORDERED: TEMAZEPAM 15 MG CAP PO SCH (00:45)
[2022-12-23 07:27] VITALS: PULSE 66; TEMP 98.1
[2022-12-23] MEDS ORDERED: PANTOPRAZOLE 40 MG TABLET PO SCH (07:30)
[2022-12-23] MEDS ORDERED: ALPRAZolam 0.25 MG TAB PO PRN (08:19)
[2022-12-23] MEDS ORDERED: HYDROcodone/APAP 10-325MG 1 EACH TAB PO PRN (08:19)
[2022-12-23 08:24] VITALS: BP 160/84
[2022-12-23] MEDS ORDERED: LOSARTAN 50 MG TAB PO SCH (09:00)
--- NOTE | 2022-12-23 10:08 | P.HPOR ---
History of Present Illness H&P Date: 12/23/22 Chief Complaint: Left thumb distal amputation/fracture Patient is an 82-year-old male seen at bedside this am. He presented to the emergency department for a left thumb injury yesterday 12/22/22. He states that he got his left thumb caught in a wood splitter shortly before arrival. He was unable to control the bleeding. He is not taking any blood thinners. Unsure when his last tetanus vaccine was. He continues to have pain at the thumb. No wrist or other hand pain. No new numbness. No other complaints. Review of Systems All systems: negative Constitutional: Denies chills, Denies fever Eyes: denies blurred vision, denies pain Ears, nose, mouth and throat: Denies headache, Denies sore throat Cardiovascular: Denies chest pain, Denies shortness of breath Respiratory: Denies cough Gastrointestinal: Denies abdominal pain, Denies diarrhea, Denies nausea, Denies vomiting Musculoskeletal: Denies myalgias Integumentary: Denies pruritus, Denies rash Neurological: Denies numbness, Denies weakness Psychiatric: Denies anxiety, Denies depression Endocrine: Denies fatigue, Denies weight change Past Medical History Past Medical History: Coronary Artery Disease (CAD), GERD/Reflux, Hypertension, Myocardial Infarction ([place]), Renal Disease Additional Past Medical History / Comment(s): KIDNEY PROB W/ PREV BOWEL PREP IN PAST. Last Myocardial Infarction Date:: 11/2009 History of Any Multi-Drug Resistant Organisms: MRSA Date of last positivie culture/infection: 10/2009 MDRO Source:: BUTTOCK Past Surgical History: Cholecystectomy, Heart Catheterization, Heart Catheteriz ation With Stent, Orthopedic Surgery Additional Past Surgical History / Comment(s): RT 5TH DIGIT REPAIR. Past Anesthesia/Blood Transfusion Reactions: No Reported Reaction Date of Last Stent Placement:: 07/2005 Past Psychological History: No Psychological Hx Reported Smoking Status: Former smoker Past Alcohol Use History: None Reported Past Drug Use History: None Reported Medications and Allergies Home Medications Medication Instructions Recorded Confirmed Type ALPRAZolam [Xanax] 0.25 mg PO BID PRN 03/26/14 12/22/22 History Temazepam [Restoril] 30 mg PO HS 03/26/14 12/22/22 History traMADol HCL 50 mg PO Q6H PRN 12/22/22 12/22/22 History Atorvastatin [Lipitor] 20 mg PO HS #30 tab 12/23/22 Rx Cephalexin [Keflex] 500 mg PO Q6HR 1 Days #28 cap 12/23/22 Rx Docusate [Colace] 100 mg PO BID #60 capsule 12/23/22 Rx HYDROcodone/APAP 10-325MG [[place] 1 tab PO Q4HR PRN #30 tab 12/23/22 Rx 10-325] Losartan [Cozaar] 100 mg PO DAILY #60 tab 12/23/22 Rx Pantoprazole [Protonix] 40 mg PO AC-BRKFST #30 tab 12/23/22 Rx Allergies Allergy/AdvReac Type Severity Reaction Status Date / Time Sulfa (Sulfonamide Allergy AFFECTED Verified 12/22/22 13:41 Antibiotics) KIDNEYS Physical Examination Inspection of the left hand and thumb shows a bulky dressing intact at the thumb. It is not taken down. He has painless free ROM of the hand and other digits. The hand is not tender, erythematous or swollen. NVI with 2+ radial pulse and less than 2 sec refill in digits 2-5. Sensation intact to light touch throughout the hand and digits. Results - Labs Labs: Abnormal Lab Results - Last 24 Hours (Table) 12/22/22 Range/Units 15:30 Lymphocytes # 0.6 L (1.0-4.8) k/uL H & H 12/22/22 Range/Units 15:30 Hgb 15.3 (13.0-17.5) gm/dL Hct 47.5 (39.0-53.0) % Coagulation 12/22/22 Range/Units 15:30 INR 1.0 (<1.2) Result Diagrams: 12/22/22 15:30 12/22/22 15:30 - Diagnostic results Wrist/Hand x-ray: report reviewed, image reviewed Assessment and Plan (1) Crushing injury of left thumb Narrative/Plan: The patient has been reviewed with Dr. Luther. He will continue with bulky dressing to the thumb and f/u in office in the next week with Dr. Restrepo to discuss surgical revision. I advised him on maintaining the dressing and elevation. He will be discharged with antibiotics and pain meds to take as directed Current Visit: Yes Status: Acute Priority: Medium Code(s): S67.02XA - CRUSHING INJURY OF LEFT THUMB, INITIAL ENCOUNTER SNOMED Code(s): [id number] Time with Patient: Less than 30
--- NOTE | 2022-12-23 10:19 | P.DS ---
Providers Date of admission: 12/22/22 16:32 Expected date of discharge: 12/23/22 Attending physician: Tera Luther Consults: 12/22/22 15:40 Consult Physician Urgent Consulting Provider: González Goodrich Consult Reason/Comments: Medical management, surgical clearance Do you want consulting provider notified?: Already Contacted Primary care physician: Amish Crawford - Discharge Diagnosis(es) (1) Crushing injury of left thumb Patient was admitted through the ED on 12/21/22 after suffering a left thumb crush injury/distal soft tissue amputation and distal phalanx fracture. He received IV antibiotics overnight as well as tetanus booster. Immediate surgical intervention was not warranted. Hospital course has remained without complication. On day of discharge he is afebrile, vital signs stable, labs within acceptable ranges, tolerating by mouth meds and diet, voiding without difficulty, positive flatus, denies abdominal pain or calf pain, pain is controlled on oral pain medication and has no new complaints. Wound is benign, neurovascular status is intact, calf is soft and nontender, abdomen soft and nontender. Review of systems is negative for numbness, tingling, fever, chills, chest pain, shortness of breath, nausea, vomiting, dizziness, headaches, slurred speech or other. Current Visit: Yes Status: Acute Priority: Medium Patient Condition at Discharge: Stable Plan - Discharge Summary New Discharge Prescriptions: New Docusate [Colace] 100 mg PO BID #60 capsule HYDROcodone/APAP 10-325MG [[place] 10-325] 1 tab PO Q4HR PRN #30 tab PRN Reason: Pain Cephalexin [Keflex] 500 mg PO Q6HR 1 Days #28 cap Losartan [Cozaar] 100 mg PO DAILY #60 tab Atorvastatin [Lipitor] 20 mg PO HS #30 tab Pantoprazole [Protonix] 40 mg PO AC-BRKFST #30 tab Continue ALPRAZolam [Xanax] 0.25 mg PO BID PRN PRN Reason: Anxiety Temazepam [Restoril] 30 mg PO HS traMADol HCL 50 mg PO Q6H PRN PRN Reason: Pain Discontinued HYDROcodone/APAP 10-325MG [[place] 10-325] 1 tab PO Q6HR PRN PRN Reason: Pain Discharge Medication List ALPRAZolam [Xanax] 0.25 mg PO BID PRN 03/26/14 [History] Temazepam [Restoril] 30 mg PO HS 03/26/14 [History] traMADol HCL 50 mg PO Q6H PRN 12/22/22 [History] Atorvastatin [Lipitor] 20 mg PO HS #30 tab 12/23/22 [Rx] Cephalexin [Keflex] 500 mg PO Q6HR 1 Days #28 cap 12/23/22 [Rx] Docusate [Colace] 100 mg PO BID #60 capsule 12/23/22 [Rx] HYDROcodone/APAP 10-325MG [[place] 10-325] 1 tab PO Q4HR PRN #30 tab 12/23/22 [Rx] Losartan [Cozaar] 100 mg PO DAILY #60 tab 12/23/22 [Rx] Pantoprazole [Protonix] 40 mg PO AC-BRKFST #30 tab 12/23/22 [Rx] Follow up Appointment(s)/Referral(s): Mesha Restrepo DO [Doctor of Osteopathic Medicine] - 12/30/22 8:30 am Amish Crawford MD [Primary Care Provider] - 1-2 days Patient Instructions/Handouts: Crush Injury (ED) Activity/Diet/Wound Care/Special Instructions: maintain bandage. keep clean and dry take meds as directed keep thumb elevated above heart F/U with Dr. Restrepo in office Discharge Disposition: HOME SELF-CARE
--- NOTE | 2022-12-23 13:30 | P.PN ---
Subjective Progress Note Date: 12/23/22 82-year-old male is admitted for transverse fracture of the left thumb after it got struck in the wood splinter. Patient does have history of hypertension denied any present chest pain denied any history of smoking. Patient doesn't denied any shortness of breath orthopnea or paroxysmal nocturnal dyspnea patient blood pressure is bit on the higher side. He does take her losartan at home. 12/23/2022 Patient is evaluated today resting in bed. Continues on oral norco for pain management of left thumb pain. Dr. Restrepo is out of town and patient was discharged home with pain medications by orthopedics and will see Dr. Restrepo outpatient. Review of Systems Constitutional: Denied any fatigue denied any fever. Cardio vascular: denied any chest pain, palpitations Gastrointestinal: denied any nausea, vomiting, diarrhea Pulmonary: Denied any shortness of breath cough Neurologic denied any new focal deficits All inpatient medications were reviewed and appropriate changes in these medications as dictated in the interval history and assessment and plan. PHYSICAL EXAMINATION: GENERAL: The patient is alert and oriented x3, not in any acute distress. Well developed, well nourished. HEENT: Pupils are round and equally reacting to light. EOMI. No scleral icterus. No conjunctival pallor. Normocephalic, atraumatic. No pharyngeal erythema. No thyromegaly. CARDIOVASCULAR: S1 and S2 present. No murmurs, rubs, or gallops. PULMONARY: Chest is clear to auscultation, no wheezing or crackles. ABDOMEN: Soft, nontender, nondistended, normoactive bowel sounds. No palpable organomegaly. MUSCULOSKELETAL: As mentioned above EXTREMITIES: No cyanosis, clubbing, or pedal edema. NEUROLOGICAL: Gross neurological examination did not reveal any focal deficits. SKIN: No rashes. Assessment and plan -Transverse fracture of the distal thumb: Management as per primary service she will be discharged home to follow-up with Dr. Restrepo an outpatient -hyperlipidemia -Hypertension uncontrolled resumed on her losartan increased 200 mg daily with improvement in blood pressure -Coronary artery disease with stents in the past resumed on home medications -Gastroesophageal reflux disease: Resumed on proton pump inhibitor DVT prophylaxis: As per primary service Orthopedics as recommended to discharge patient home and to follow-up with orthopedics Dr Restrepo as an outpatient who is a hand surgeon. Patient is agreeable to this plan and was discharged home on oral pain medication. Patient is discharged home with Protonix for GI prophylaxis. Appendix is also some the patient home on oral Keflex for the next 5 days. Patient received tetanus prophylaxis vaccination while in the ER. The impression and plan of care has been dictated by Ly Fragoso, Nurse Practitioner as directed. Dr. Joleen MD I have performed a history and physical examination and medical decision making of this patient, discussed the same with the dictator, and agree with the dictators assessment and plan as written, documented as a scribe. Based on total visit time, I have performed more than 50% of this visit. Objective - Vital Signs Vital signs: Vital Signs Temp 98.1 F 12/23/22 07:00 Pulse 66 12/23/22 07:00 Resp 16 12/23/22 07:00 BP 160/84 12/23/22 08:17 Pulse Ox 98 12/23/22 07:00 FiO2 Intake & Output 12/22/22 12/23/22 12/23/22 18:59 06:59 18:59 Weight 83.915 kg Other: # Voids 1 - Labs CBC & Chem 7: 12/22/22 15:30 12/22/22 15:30 Labs: Abnormal Lab Results - Last 24 Hours (Table) 12/22/22 Range/Units 15:30 Lymphocytes # 0.6 L (1.0-4.8) k/uL Assessment and Plan Time with Patient: Less than 30
== END 2022-12-23 10:17 | disposition home or self-care (01) ==
LOC: EC 13:34 → 6NMEDSUR 16:32
PROVIDERS: ADMIT Orthopaedic Surgery Sports Medicine; ATTEND Orthopaedic Surgery Sports Medicine
DX: S67.02XA Crushing injury of left thumb, initial encounter (principal); S62.522A Displaced fracture of distal phalanx of left thumb, initial encounter for closed fracture; W23.0XXA Caught, crushed, jammed, or pinched between moving objects, initial encounter; K21.9 Gastro-esophageal reflux disease without esophagitis; I25.10 Atherosclerotic heart disease of native coronary artery without angina pectoris; I10 Essential (primary) hypertension; E78.5 Hyperlipidemia, unspecified; I25.2 Old myocardial infarction; Z79.82 Long term (current) use of aspirin; Z79.899 Other long term (current) drug therapy; Z88.2 Allergy status to sulfonamides; Z95.5 Presence of coronary angioplasty implant and graft; Z86.14 Personal history of Methicillin resistant Staphylococcus aureus infection; Z90.49 Acquired absence of other specified parts of digestive tract; Z98.890 Other specified postprocedural states; Z87.891 Personal history of nicotine dependence
CPT/HCPCS: 96366; 90471; 96365; 96372; 99285; 36415; 93005; 80053; 85025; 85610; 85730; 73140; 90715; G0378 ×2; J2270; J0690 ×3